=== PATIENT | male | born 1955 | race Two or more races ===

== ENCOUNTER → 2020-08-01 | Outpatient (CLI) | payer MEDICARE, BC ==
[2020-08-01 23:07] LABS: THYROXINE 8.7 ug/dL (4.5-12.0)
== END ==
LOC: LAB 14:29
PROVIDERS: ATTEND Psychiatry & Neurology Neurology
DX: E04.1 Nontoxic single thyroid nodule (principal)
CPT/HCPCS: 36415; 84436; 84443; 84480

== ENCOUNTER → 2020-08-22 | Outpatient (CLI) | payer MEDICARE, BC ==
--- NOTE | 2020-08-22 18:00 | RAD ---
CT scan of the cervical spine without contrast 08/22/2020 Clinical history: Neck pain Technique: Unenhanced, contiguous, 0.625 mm axial sections were obtained through the cervical spine. 2 mm mm reconstructed axial and 2 mm coronal and sagittal reconstructed images were obtained. One or more of the following individualized dose reduction techniques were utilized for this study: 1. Automated exposure control. 2. Adjustment of the mA and/or kV according to patient size. 3. Use of iterative reconstruction technique. Findings: Sagittal and coronal reconstructed images demonstrate straightening of the normal cervical lordosis. Degenerative changes consisting of vertebral endplate sclerosis and minimal to mild anterio r and posterior vertebral body osteophyte formation are seen involving the cervical disc spaces. Disc space narrowing is seen at C5-6. No fracture or subluxation of the cervical vertebrae is seen. Degenerative changes are seen throughout the cervical disc spaces consisting of minimal to mild gener alized disc bulges and degenerative changes involving the uncovertebral and facet joints. These findi ngs do not result in significant central spinal canal stenosis at any level. Mild bilateral neural fo raminal stenosis is seen at C5-6. IMPRESSION: Degenerative changes are seen throughout the cervical spine. These findings do not result in significant central spinal canal stenosis at any level. Mild bilateral neural foraminal stenosis is seen at C5-6. Electronically signed by: Arden Israel MD (08/22/2020 5:58 PM) [id number]
--- NOTE | 2020-08-22 18:05 | RAD ---
CT scan of the lumbar spine without contrast 08/22/2020 CLINICAL HISTORY: Low back pain. TECHNIQUE: Unenhanced, contiguous, 0.625 mm axial sections were obtained through the lumbar spine. 3 mm reconstructed sagittal, axial and coronal images were obtained. One or more of the following individualized dose reduction techniques were utilized for this study: 1. Automated exposure control. 2. Adjustment of the mA and/or kV according to patient size. 3. Use of iterative reconstruction technique. FINDINGS: Sagittal and coronal reconstructed images demonstrate minimal S-shaped curvature of the tho racolumbar spine. Degenerative changes consisting of vertebral endplate sclerosis and minimal to mild anterior vertebral body osteophyte formation are seen throughout the lumbar disc spaces. Disc space narrowing is seen at L5-S1. A 1.7 cm hemangioma is seen involving the L2 vertebral body. Atherosclero tic calcification of the abdominal aorta and its branches is noted. The changes of degenerative disc disease are seen throughout the lumbar disc spaces. These consist of minimal to mild generalized disc bulges, degenerative changes involving the facet joints and mild to moderate ligamentum flavum hypertrophy. These findings do not result in significant central spinal c anal stenosis. Mild bilateral neural foraminal stenosis is seen at L5-S1. IMPRESSION: The changes of degenerative disc disease are seen throughout the lumbar spine. These fin dings do not result in significant central spinal canal stenosis at any level. Mild bilateral neural foraminal stenosis is seen at L5-S1. No acute osseous abnormality is seen. Electronically signed by: Arden Israel MD (08/22/2020 6:02 PM) [id number]
== END ==
LOC: CT 11:21
PROVIDERS: ATTEND Psychiatry & Neurology Neurology
DX: M47.812 Spondylosis without myelopathy or radiculopathy, cervical region (principal); M48.02 Spinal stenosis, cervical region; M51.36 Other intervertebral disc degeneration, lumbar region; M47.816 Spondylosis without myelopathy or radiculopathy, lumbar region; M48.07 Spinal stenosis, lumbosacral region; I70.0 Atherosclerosis of aorta; D18.09 Hemangioma of other sites; M89.38 Hypertrophy of bone, other site; M25.78 Osteophyte, vertebrae
CPT/HCPCS: 72125; 72131